=== PATIENT | male | born 1995 | race Caucasian/White ===

== ENCOUNTER → 2017-11-17 | Day surgery (SDC) | payer BC ==
[~2017-11-17] MED LIST: ACETAMINOPHEN 1000 MG/100 ML 100 ML IV ONE; KETOROLAC TROMETHAMINE 30 MG/ML (IVP) VIAL IV PUSH ONE; LACTATED RINGER'S 1000 ML INJ 1,000 ML ONE; MIDAZOLAM HCL 2 MG/2 ML VIAL ONE; MULT1TAB84 PO; ONDANSETRON HCL 4 MG/2 ML VIAL IV PUSH ONE; PROPOFOL 200 MG/20 ML AMP IV ONE; SODIUM CHLOR 0.9% 250 ML BAG IV ONE; VANCOMYCIN HCL 1000 MG VIAL ONE
--- NOTE | 2017-11-17 16:07 | TN ---
cc: MARYA BARAKAT M.D. DATE OF SURGERY 11/17/2017 PREOPERATIVE DIAGNOSIS Left breast gynecomastia. POSTOPERATIVE DIAGNOSIS Left breast gynecomastia. PROCEDURE Left breast lumpectomy. SURGEON Dr. Marya Barakat [employer] Luiza Carrasquillo, MS-3 ANESTHESIA General. 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 His father had the exact same problem at the age of 28. Mammogram and ultrasound from [place] demonstrated dense retroareolar tissue consistent with gynecomastia. INTRAOPERATIVE FINDINGS Dense fibrous breast tissue excised and sent to pathology, short stitch superior anterior, long stitch lateral posterior. ESTIMATED BLOOD LOSS Less than 5 ml DESCRIPTION OF PROCEDURE IN DETAIL The patient identified as Isaiah Pascal taken to the operating room, placed in the supine position. Sequential compression devices were placed on bilateral lower extremities. Following induction of adequate general anesthesia with a laryngeal mask the left breast was prepped and draped in usual sterile fashion with Betadine. Time-out procedure was performed. Following completion of time-out procedure to everyone's satisfaction within the room a proposed infra-areolar incision was made with a marking pen. Local anesthetic was infiltrated and the proposed incision was carried out with scalpel. Hemostasis was controlled with electrocautery. The retroareolar thickened dense tissue was removed from the overlying dermis of the nipple-areolar complex down to the fascia of the chest wall. A short stitch superior anterior and a long stitch lateral posterior was removed. Palpation demonstrated no residual abnormal tissue. The wound was irrigated copiously with saline. Small bleeding points were controlled with electrocautery. Once the wound was sure to be dry the center portion of the posterior nipple-areolar position was sutured down with 3-0 Vicryl suture to close the space. 3-0 Vicryl was placed in a deep dermis and subcutaneous tissue along the incision line. The skin was approximated with running 4-0 Monocryl subcuticular suture. Dressings were applied with Mastisol one-half brown Steri-Strips, gauze and Tegaderm. The patient tolerated the procedure without apparent complication. Sponge, needle and instrument counts were correct at the end of the case. MD BLANCA Borwn/CAROLINA /3:32 PM /3:42 PM
== END | disposition home or self-care (01) ==
LOC: ESDC 12:46
PROVIDERS: ATTEND Surgery Trauma Surgery
DX: N62 Hypertrophy of breast (principal)
CPT/HCPCS: 00400; 19300; 88307; J0131; J1885; J2250; J2405; J3010; J3370; J7050; J7120; 88305